=== PATIENT | female | born 1990 | race African-American/Black ===

== ENCOUNTER 2023-02-23 00:15 | Emergency (ER) | payer OTHER, MEDICAID ==
[~2023-02-23] VITALS: Ht 167.6 cm; Wt 54.9 kg
[2023-02-23 00:20] VITALS: BP 118/87; PULSE 103; RESP 14; TEMP 97.2; O2SAT 99
[2023-02-23 00:34] VITALS: O2SAT 99
[2023-02-23] MEDS ORDERED: BACITRACIN OINT 500 UNITS/GM PKT TP ONE (01:10)
== END 2023-02-23 01:30 | disposition home or self-care (01) ==
LOC: MED 00:15 → EDSEX 00:15 → MED 01:30
DX: S00.211A Abrasion of right eyelid and periocular area, initial encounter (principal); Z02.89 Encounter for other administrative examinations; V89.2XXA Person injured in unspecified motor-vehicle accident, traffic, initial encounter; Y93.89 Activity, other specified; Y92.89 Other specified places as the place of occurrence of the external cause; Y99.8 Other external cause status
CPT/HCPCS: 99282